=== PATIENT | male | born 1955 | race Caucasian/White ===

== ENCOUNTER 2016-06-29 13:19 | Emergency (ER) | payer OTHER ==
[~2016-06-29] VITALS: Ht 172.7 cm; Wt 90.9 kg
[~2016-06-29 13:19] MED LIST: HYDR-3534 PO; IBUP800T23 PO; LISI-360 PO; LISI10TA3 PO; PERC5TAB12 PO; PROT40TA PO; TRAM50TA PO
[2016-06-29 13:21] VITALS: BP 146/93; PULSE 137; RESP 14; TEMP 98.6; O2SAT 100
[2016-06-29] MEDS ORDERED: oxyCODONE/ACETAMINOPHEN 5 MG/325 MG TAB PO ONE (16:00)
--- NOTE | 2016-06-29 16:06 | RADRPT ---
EXAM DATE/TIME: 06/29/2016 15:44 [facility] COMPARISON: KNEE LEFT LTD (1 OR 2VWS), May 30, 2016, 1:02. INDICATIONS : Left knee pain and swelling. MEDICAL HISTORY : Arthritis. SURGICAL HISTORY : None. ENCOUNTER: Initial ACUITY: 3 months PAIN SCORE: 10/10 LOCATION: Left knee. FINDINGS: There is severe left knee 3 compartment osteoarthritis with marginal osteophytosis and posterior join t bodies. A large joint effusion is present, new. CONCLUSION: Severe osteoarthritis. Nonspecific joint effusion. No fracture or subluxation. Chaz Brooks MD on June 29, 2016 at 16:04 Board Certified Radiologist. This report was verified electronically.
--- NOTE | 2016-06-29 16:26 | PD ---
HPI Chief Complaint: Pain: Acute or Chronic Time Seen by Provider: 16:16 Travel History International Travel<30 days: No Contact w/Intl Traveler<30days: No Traveled to known affect area: No History of Present Illness HPI 60-year-old male with a long history of bilateral arthritis in the knees presents to the emergency room for evaluation of extreme left knee pain and swelling that started this morning. Patient's was seen by Dr. Luna in his office 5 days ago for this condition at which time the knee was drained. Patient states since then it has been gradually increasing in size and this morning it was the largest that it has been thus far. Patient states it has been a long time since he has had an x-ray. Denies any trauma. States this morning while rolling over in bed he hurt his knee pop and had extreme pain at the time. He took Aleve and Lortab, wrapped his knee, applied multiple bags of ice, and applied topical pain medication without any relief. He is scheduled to have outpatient knee replacement. Denies fever, chills, nausea, and vomiting. States he usually ambulates with crutches and does not apply weight to his lower extremity. Denies paresthesias. PFSH Past Medical History Cardiovascular Problems: Yes (HTN) Diminished Hearing: No Diverticulitis: Yes GERD: Yes Immunizations Current: Yes Tetanus Vaccination: Unknown Influenza Vaccination: No Past Surgical History Joint Replacement: Yes (RIGHT KNEE) Other Surgery: Yes (PERFORATED BOWEL) Social History Alcohol Use: No Tobacco Use: Yes (6 CIGS DAILY) Substance Use: No Allergies-Medications (Allergen,Severity, Reaction): Coded Allergies: Aspirin (Verified Allergy, Severe, ANAPHYLAXIS, 06/29/16) Reported Meds & Prescriptions Reported Meds & Active Scripts Active Percocet (Oxycodone-Acetaminophen) 7.5-325 mg Tab 1 Tab PO Q6H PRN Lortab (Hydrocodone-Acetaminophen) 7.5-325 Mg Tab 1 Tab PO Q6H PRN Ibuprofen 800 Mg Tab 800 Mg PO Q6H PRN Percocet 5-325 mg (Oxycodone/Acetaminophen) 1 Tab 1 Tab PO Q6H PRN Lisinopril 10 mg (Lisinopril) 10 Mg Tab 1 Tab PO DAILY Reported Tramadol (Tramadol HCl) 50 Mg Tab 50 Mg PO Q4H PRN Protonix (Pantoprazole Sodium) 40 Mg Tab 40 Mg PO DAILY Lisinopril 10 Mg Tab 10 Mg PO DAILY Protonix (Pantoprazole Sodium) 40 Mg Tab 40 Mg PO DAILY Review of Systems Except as stated in HPI: all other systems reviewed are Neg Physical Exam Narrative GENERAL: Well-nourished, well-developed male in no acute distress. Afebrile. SKIN: Warm and dry. No erythema or ecchymosis. HEAD: Normocephalic. EYES: No scleral icterus. No injection or drainage. NECK: Supple, trachea midline. No JVD or lymphadenopathy. EXTREMITY: Right knee extremely tender to palpation on lateral and medial sides. No patellar tenderness. Limited range of motion secondary to pain. Obvious effusion. 2+ dorsalis pedis pulse distally. Data Data Last Documented VS Vital Signs Date Time Temp Pulse Resp B/P Pulse Ox O2 Delivery O2 Flow Rate FiO2 06/29/16 16:52 116 06/29/16 13:21 98.6 14 146/93 100 Room Air Orders Knee, Complete (4vws) (06/29/16 ) Oxycodone-Acetamin 5-325 Mg (Percocet (06/29/16 16:00) Us Leg Venous Doppler (06/29/16 ) Complete Blood Count With Diff (06/29/16 16:58) Basic Metabolic Panel (Bmp) (06/29/16 16:58) [place]gren Sedimentation Rate (06/29/16 16:58) C-Reactive Protein (Crp) (06/29/16 16:58) Labs Laboratory Tests Test 06/29/16 17:50 White Blood Count 8.0 TH/MM3 Red Blood Count 5.32 MIL/MM3 Hemoglobin 15.5 GM/DL Hematocrit 45.3 % Mean Corpuscular Volume 85.2 FL Mean Corpuscular Hemoglobin 29.1 PG Mean Corpuscular Hemoglobin 34.2 % Concent Red Cell Distribution Width 14.0 % Platelet Count 247 TH/MM3 Mean Platelet Volume 8.0 FL Neutrophils (%) (Auto) 64.6 % Lymphocytes (%) (Auto) 25.6 % Monocytes (%) (Auto) 7.0 % Eosinophils (%) (Auto) 1.4 % Basophils (%) (Auto) 1.4 % Neutrophils # (Auto) 5.2 TH/MM3 Lymphocytes # (Auto) 2.1 TH/MM3 Monocytes # (Auto) 0.6 TH/MM3 Eosinophils # (Auto) 0.1 TH/MM3 Basophils # (Auto) 0.1 TH/MM3 CBC Comment DIFF FINAL Differential Comment Sodium Level 138 MEQ/L Potassium Level 3.6 MEQ/L Chloride Level 103 MEQ/L Carbon Dioxide Level 26.8 MEQ/L Anion Gap 8 MEQ/L Blood Urea Nitrogen 17 MG/DL Creatinine 0.81 MG/DL Estimat Glomerular Filtration 98 ML/MIN Rate Random Glucose 94 MG/DL Calcium Level 9.6 MG/DL C-Reactive Protein LESS THAN 0.29 MG/DL MDM Medical Decision Making Medical Screen Exam Complete: Yes Emergency Medical Condition: Yes Medical Record Reviewed: Yes Differential Diagnosis Chronic knee pain versus osteoarthritis versus effusion versus septic arthritis unlikely Narrative Course 60-year-old male with history of hemarthrosis and chronic knee pain presents to the emergency room for evaluation of acute on chronic left knee pain. Patient has history of severe*arthritis requiring knee replacement. Reports significant worsening of pain upon waking this morning. Denies any new trauma or injury. Patient had a arthrocentesis performed as an outpatient by Dr. Luna 5 days ago. States the fluid has accumulated since then. Reports significant pain upon range of motion. Left lower extremity is neurovascularly intact with 2+ dorsalis pedis pulse. Full range motion of the ankle and foot. Limited range of motion secondary to pain and edema. Significant tenderness to palpation of lateral and medial knee. There is obvious, large effusion. No erythema or ecchymosis. Knee is not significantly warmer than the other. Given recent arthrocentesis an acute onset of pain, labs were obtained to rule out septic arthritis. CBC, BMP, sedimentation rate, and CRP are unremarkable making septic arthritis unlikely. Patient is highly anxious and his heart rate is persistently elevated. I spoke to my attending physician, Dr. Tripp, who recommends ultrasound to rule out DVT. Ultrasound is negative. X-ray shows severe osteoarthritis and large effusion but no new injury. This is acute on chronic joint effusion. Patient was encouraged to follow up with Dr. Luna. Discharged with prescription for Percocet. He understands and agrees to plan. Diagnosis Primary Impression: Osteoarthritis of left knee Qualified Code: M17.12 - Primary osteoarthritis of left knee Referrals: Primary Care Physician Patient Instructions: General Instructions, Osteoarthritis (ED) Additional Instructions: Rest and drink plenty of fluids. Take Lortab as directed, as needed for pain. Do not drink alcohol or drive while taking this medication. Take ibuprofen with food as directed, as needed for pain. Apply ice to the affected area for 20 minutes at a time, as needed for pain and swelling. Follow-up with a primary care physician. Return to the emergency room for worsening symptoms. Med/Other Pt SpecificInfo: Prescription(s) given Scripts Oxycodone-Acetaminophen (Percocet)7.5-325 mg Tab1 Tab PO Q6H PRN (PAIN) #10 TAB Ref 0 Prov:Regina Tripp DO 06/29/16 Disposition: 01 DISCHARGE HOME Condition: Stable Cassandra Iniguez Jun 29, 2016 16:26
[2016-06-29] MEDS ORDERED: PERC7.5T13 PO (16:51)
[2016-06-29 16:52] VITALS: PULSE 116
--- NOTE | 2016-06-29 18:01 | RADRPT ---
EXAM DATE/TIME: 06/29/2016 17:24 [facility] COMPARISON: US LEG LEFT VENOUS DOPPLER, April 16, 2016, 3:39. INDICATIONS : Left leg pain. MEDICAL HISTORY : Hypertension. Diverticulitis. Gastroesophageal reflux disease. SURGICAL HISTORY : Total knee replacement, right. Left upper arm fracture repair. Perforated bowel repair. ENCOUNTER: Initial ACUITY: 1 day PAIN SCORE: 9/10 LOCATION: Left leg. TECHNIQUE: Venous ultrasound of the leg was performed from the inguinal ligament to the proximal calf. Real-tex e, color Doppler and spectral tracing, compression and augmentation techniques were used. FINDINGS: There is normal compressibility of the deep venous system from the inguinal region to the proximal ca lf. No echogenic clot is seen in the lumen of the common femoral, femoral, popliteal, and posterior tibial veins. There is a normal response of the venous system to proximal and distal augmentation an d respiration. The presumed popliteal cyst seen previously has resolved. CONCLUSION: No DVT of the left lower extremity. Chaz Brooks MD on June 29, 2016 at 17:59 Board Certified Radiologist. This report was verified electronically.
[2016-06-29 18:17] LABS: AUTOMATED NEUTROPHIL # 5.2 TH/MM3 (1.8-7.7); BASOPHIL # 0.1 TH/MM3 (0-0.2); BASOPHIL % 1.4 % (0.0-2.0); EOSINOPHIL # 0.1 TH/MM3 (0-0.4); EOSINOPHIL % 1.4 % (0.0-4.0); HEMATOCRIT 45.3 % (39.0-51.0); HEMO FLAGS DIFF FINAL; LYMPH % 25.6 % (9.0-44.0); LYMPHOCYTE # 2.1 TH/MM3 (1.0-4.8); MEAN CELL VOLUME 85.2 FL (80.0-100.0); MEAN CORPUSCULAR HEMOGLOBIN 29.1 PG (27.0-34.0); MEAN CORPUSCULAR HGB CONC 34.2 % (32.0-36.0); NEUT % 64.6 % (16.0-70.0); PLATELET COUNT 247 TH/MM3 (150-450); RED BLOOD COUNT 5.32 MIL/MM3 (4.50-5.90)
[2016-06-29 18:39] LABS: ANION GAP 8 MEQ/L (5-15); BICARBONATE 26.8 MEQ/L (21.0-32.0); BLOOD UREA NITROGEN 17 MG/DL (7-18); CHLORIDE 103 MEQ/L (98-107); GLOMERULAR FILTRATION RATE 98 ML/MIN (>89); POTASSIUM 3.6 MEQ/L (3.5-5.1); SODIUM (NA) 138 MEQ/L (136-145)
== END 2016-06-29 19:48 | disposition home or self-care (01) ==
LOC: NEPB 13:19
DX: M17.12 Unilateral primary osteoarthritis, left knee (principal); I10 Essential (primary) hypertension; K21.9 Gastro-esophageal reflux disease without esophagitis; K57.92 Diverticulitis of intestine, part unspecified, without perforation or abscess without bleeding; F17.210 Nicotine dependence, cigarettes, uncomplicated
CPT/HCPCS: 73564; 80048; 85025; 85652; 86140; 93971

== ENCOUNTER 2016-11-27 18:10 | Emergency (ER) | payer OTHER ==
[~2016-11-27] VITALS: Ht 172.7 cm; Wt 90.0 kg
[~2016-11-27 18:10] MED LIST changes: +PERC7.5T13 PO
[2016-11-27 18:12] VITALS: BP 131/85; PULSE 112; RESP 14; TEMP 98.2; O2SAT 99
[2016-11-27 18:39] VITALS: O2SAT 96
[2016-11-27] MEDS ORDERED: SODIUM CHLOR 0.9% 1000 ML INJ 1,000 ML IV SCH (18:41)
[2016-11-27] MEDS ORDERED: SODIUM CHLORIDE 0.9% FLUSH 10 ML FLUSH IV FLUSH PRN ×2 (18:45)
[2016-11-27] MEDS ORDERED: ONDANSETRON HCL 4 MG/2 ML VIAL IVP ONE (18:45)
[2016-11-27] MEDS ORDERED: MORPHINE SULFATE 4 MG/ML INJ IV PUSH ONE (18:45)
[2016-11-27] MEDS ORDERED: KETOROLAC TROMETHAMINE 30 MG/ML (IVP) VIAL IVP ONE (18:45)
--- NOTE | 2016-11-27 18:46 | PD ---
HPI Chief Complaint: Flank/Kidney Pain Time Seen by Provider: 18:42 Travel History International Travel<30 days: No Contact w/Intl Traveler<30days: No Traveled to known affect area: No History of Present Illness HPI 60-year-old male with history of hypertension and GERD presents to the emergency department for evaluation of right flank pain, nausea and vomiting. The patient states that 2 days ago in the evening he had right flank pain with nausea and multiple episodes of nonbloody nonbilious emesis. States that yesterday his symptoms subsided however today his symptoms have returned. States that he has not had any vomiting today but has had nausea throughout the day with intermittent right flank pain. No aggravating or alleviating factors. States that he has noticed his urine is also darker. He states his kidney stones in the past and his symptoms feel similar today. He denies any fever, chills, chest pain, shortness of breath, diarrhea, constipation, burning with urination, painful urination. Denies any prior abdominal surgeries. No other complaints. PFSH Past Medical History Cardiovascular Problems: Yes (HTN) Diminished Hearing: No Diverticulitis: Yes GERD: Yes Immunizations Current: Yes Past Surgical History Joint Replacement: Yes (RIGHT KNEE) Other Surgery: Yes (PERFORATED BOWEL) Social History Alcohol Use: No Tobacco Use: Yes (6 CIGS DAILY) Substance Use: No Allergies-Medications (Allergen,Severity, Reaction): Coded Allergies: Aspirin (Verified Allergy, Severe, ANAPHYLAXIS, 06/29/16) Reported Meds & Prescriptions Reported Meds & Active Scripts Active Reported Flonase Nasal [place] (Fluticasone Nasal [place]) 50 Mcg/Act [place] 50 Mcg EACH NARE BID Protonix (Pantoprazole Sodium) 40 Mg Tab 40 Mg PO DAILY Lisinopril 10 Mg Tab 10 Mg PO DAILY Review of Systems Except as stated in HPI: all other systems reviewed are Neg Physical Exam Narrative GENERAL: Well-nourished and well-developed pleasant patient in no acute distress who is nontoxic appearing. SKIN: Warm and dry. HEAD: Normocephalic and atraumatic. EYES: No injection, drainage, or hyphema noted. PERRLA. EOMI. ENT: No nasal drainage noted. Oropharynx is clear. NECK: Supple and the trachea is midline. CARDIOVASCULAR: Regular rate and rhythm. RESPIRATORY: Breath sounds are equal bilaterally with no accessory muscle use, wheezing, rhonchi, or crackles. GASTROINTESTINAL: Tenderness to palpation of right flank. Negative Griffith's sign. Negative McBurney's point. No rebound tenderness or guarding. Abdomen is soft and nondistended. MUSCULOSKELETAL: No obvious deformities, swelling, cyanosis, or ecchymosis is present throughout the upper and lower extremities. Patient has full range of motion without any signs of neurovascular compromise. BACK: Negative CVA tenderness. NEUROLOGICAL: Awake, alert, and oriented. Normal speech and gait. Cranial nerves are grossly intact. Data Data Last Documented VS Vital Signs Date Time Temp Pulse Resp B/P Pulse Ox O2 Delivery O2 Flow Rate FiO2 11/27/16 18:39 96 11/27/16 18:12 98.2 112 14 131/85 Orders Complete Blood Count With Diff (11/27/16 18:34) Comprehensive Metabolic Panel (11/27/16 18:34) Lipase (11/27/16 18:34) Urinalysis - C+S If Indicated (11/27/16 18:34) Iv Access Insert/Monitor (11/27/16 18:34) Ecg Monitoring (11/27/16 18:34) Oximetry (11/27/16 18:34) Sodium Chloride 0.9% Flush (Ns Flush) (11/27/16 18:45) Ct Abd/Pel W/O Iv Contrast (11/27/16 18:41) Morphine Inj (Morphine Inj) (11/27/16 18:45) Ondansetron Inj (Zofran Inj) (11/27/16 18:45) Sodium Chlor 0.9% 1000 Ml Inj (Ns 1000 M (11/27/16 18:41) Sodium Chloride 0.9% Flush (Ns Flush) (11/27/16 18:45) Ketorolac Inj (Toradol Inj) (11/27/16 18:45) Urine Culture (11/27/16 18:55) Labs Laboratory Tests Test 11/27/16 11/27/16 18:41 18:55 White Blood Count 7.7 TH/MM3 Red Blood Count 4.79 MIL/MM3 Hemoglobin 13.4 GM/DL Hematocrit 40.9 % Mean Corpuscular Volume 85.5 FL Mean Corpuscular Hemoglobin 28.0 PG Mean Corpuscular Hemoglobin 32.7 % Concent Red Cell Distribution Width 14.6 % Platelet Count 261 TH/MM3 Mean Platelet Volume 7.6 FL Neutrophils (%) (Auto) 67.0 % Lymphocytes (%) (Auto) 20.7 % Monocytes (%) (Auto) 8.7 % Eosinophils (%) (Auto) 1.5 % Basophils (%) (Auto) 2.1 % Neutrophils # (Auto) 5.2 TH/MM3 Lymphocytes # (Auto) 1.6 TH/MM3 Monocytes # (Auto) 0.7 TH/MM3 Eosinophils # (Auto) 0.1 TH/MM3 Basophils # (Auto) 0.2 TH/MM3 CBC Comment DIFF FINAL Differential Comment Sodium Level 141 MEQ/L Potassium Level 3.9 MEQ/L Chloride Level 106 MEQ/L Carbon Dioxide Level 27.3 MEQ/L Anion Gap 8 MEQ/L Blood Urea Nitrogen 18 MG/DL Creatinine 1.10 MG/DL Estimat Glomerular Filtration 69 ML/MIN Rate Random Glucose 116 MG/DL Calcium Level 9.1 MG/DL Total Bilirubin 0.4 MG/DL Aspartate Amino Transf 11 U/L (AST/SGOT) Alanine Aminotransferase 16 U/L (ALT/SGPT) Alkaline Phosphatase 147 U/L Total Protein 7.2 GM/DL Albumin 3.9 GM/DL Lipase 105 U/L Urine Color YELLOW Urine Turbidity HAZY Urine pH 5.0 Urine Specific [place] 1.025 Urine Protein TRACE mg/dL Urine Glucose (UA) NEG mg/dL Urine Ketones 10 mg/dL Urine Occult Blood LARGE Urine Nitrite NEG Urine Bilirubin NEG Urine Urobilinogen 2.0 MG/DL Urine Leukocyte Esterase TRACE Urine RBC 132 /hpf Urine WBC 9 /hpf Urine Squamous Epithelial 1 /hpf Cells Urine Bacteria MOD /hpf Urine Mucus MANY /lpf Microscopic Urinalysis Comment CULTURE INDICATED MDM Medical Decision Making Medical Screen Exam Complete: Yes Emergency Medical Condition: Yes Differential Diagnosis Kidney stone versus pyelonephritis versus cholecystitis versus muscle spasm Narrative Course 60-year-old male presents to the emergency department for evaluation of right flank pain with nausea and vomiting. Patient is afebrile, vital signs are stable. He has a history of kidney stones and reports that this feels similar. IV access was obtained, labs were drawn and sent. Patient is administered IV fluids, Toradol, morphine and Zofran. CT the abdomen and pelvis has been ordered and is pending. CBC is unremarkable. CMP is unremarkable. Urinalysis shows 10 ketones, large occult blood, trace leukocyte esterase, 132 red blood cells, 9 white blood cells, moderate bacteria, many mucus. CT of the abdomen and pelvis without contrast shows a 7 mm obstructing ureteral stone involving the mid right ureter with resulting mild hydronephrosis and proximal hydroureter. Multiple small right renal stones. The patient is reassessed and reports improvement of symptoms after receiving pain medication. I discussed all findings with the patient. He will be discharged home with pain medication, antiemetics, antibiotics and Flomax. Patient verbalizes understanding and agreement with treatment plan. I discussed the case with my attending physician Dr. Doshi who is aware of the patients history, physical examination findings, and treatment plan. Physician Communication Physician Communication I discussed the patient with Dr. Walsh urologist who agrees with discharging the patient to home and will follow-up with him in the office early next week. Diagnosis Primary Impression: Right ureteral stone Referrals: George Walsh MD 3 days Patient Instructions: General Instructions Additional Instructions: Take medications as prescribed. Do not take Lortab with alcohol or while driving. Follow-up with Dr. Walsh urologist early next week. Return to the ED for any acute worsening of symptoms such as worsening pain, fever, chills, vomiting. Med/Other Pt SpecificInfo: Prescription(s) given Scripts Tamsulosin 0.4 Mg Cap0.4 Mg PO HS 5 Days Ref 0 Prov:Kwabena Doshi MD 11/27/16 Ciprofloxacin (Cipro)500 Mg Qlj002 Mg PO BID 10 Days Ref 0 Prov:Kwabena Doshi MD 11/27/16 Ondansetron (Zofran)4 Mg Tab4 Mg PO Q6HR PRN (NAUSEA OR VOMITING) #15 TAB Ref 0 Prov:Kwabena Doshi MD 11/27/16 Hydrocodone-Acetaminophen (Lortab)5-325 Mg Tab1 Tab PO Q6H PRN (PAIN GREATER THAN 6) #20 TAB Ref 0 Prov:Kwabena Doshi MD 11/27/16 Disposition: 01 DISCHARGE HOME Condition: Stable Yarely Rodriguez Nov 27, 2016 18:46
[2016-11-27] MEDS ORDERED: FLUT1SPR5 EACH NARE (18:49)
[2016-11-27 18:51] LABS: AUTOMATED NEUTROPHIL # 5.2 TH/MM3 (1.8-7.7); BASOPHIL # 0.2 TH/MM3 (0-0.2); BASOPHIL % 2.1 % (0.0-2.0); EOSINOPHIL # 0.1 TH/MM3 (0-0.4); EOSINOPHIL % 1.5 % (0.0-4.0); HEMATOCRIT 40.9 % (39.0-51.0); HEMO FLAGS DIFF FINAL; LYMPH % 20.7 % (9.0-44.0); LYMPHOCYTE # 1.6 TH/MM3 (1.0-4.8); MEAN CELL VOLUME 85.5 FL (80.0-100.0); MEAN CORPUSCULAR HGB CONC 32.7 % (32.0-36.0); MONO % 8.7 % (0.0-8.0); PLATELET COUNT 261 TH/MM3 (150-450); RED BLOOD COUNT 4.79 MIL/MM3 (4.50-5.90); RED CELL DISTRIBUTION WIDTH 14.6 % (11.6-17.2); WHITE BLOOD COUNT 7.7 TH/MM3 (4.0-11.0)
[2016-11-27 19:30] LABS: BACTERIA, URINE MOD /hpf; BLOOD, URINE LARGE (NEG); COMMENT (UR) CULTURE INDICATED; CULTURE IF INDICATED CULTURE INDICATED; GLUCOSE,URINE NEG (NEG); KETONE, URINE 10 mg/dL (NEG); MUCUS URINE MANY /lpf (OCC); NITRITE,URINE NEG (NEG); SQUAMOUS EPITHELIAL CELL URINE 1 /hpf (0-5); URINE COLOR YELLOW (YELLW/STRAW)
[2016-11-27 19:31] LABS: ANION GAP 8 MEQ/L (5-15); AST (GOT) 11 U/L (15-37); BICARBONATE 27.3 MEQ/L (21.0-32.0); BLOOD UREA NITROGEN 18 MG/DL (7-18); CHLORIDE 106 MEQ/L (98-107); GLOMERULAR FILTRATION RATE 69 ML/MIN (>89); POTASSIUM 3.9 MEQ/L (3.5-5.1); SODIUM (NA) 141 MEQ/L (136-145)
[2016-11-27 19:35] LABS: ALKALINE PHOSPHATASE 147 U/L (45-117); ALT (GPT) 16 U/L (12-78); TOTAL BILIRUBIN ADULT 0.4 MG/DL (0.2-1.0)
--- NOTE | 2016-11-27 19:37 | RADRPT ---
EXAM DATE/TIME: 11/27/2016 19:07 [facility] COMPARISON: No previous studies available for comparison. INDICATIONS : Right flank pain with nausea and vomiting past 2 days. ORAL CONTRAST: No oral contrast ingested. RADIATION DOSE: 19.87 CTDIvol (mGy) MEDICAL HISTORY : Cardiovascular disease. Diverticulitis. Renal calculi. SURGICAL HISTORY : Perforted bowel ENCOUNTER: Initial ACUITY: 2 days PAIN SCALE: 7/10 LOCATION: Right flank TECHNIQUE: Volumetric scanning of the abdomen and pelvis was performed. Using automated exposure control and ad justment of the mA and/or kV according to patient size, radiation dose was kept as low as reasonably achievable to obtain optimal diagnostic quality images. FINDINGS: LOWER LUNGS: The visualized lower lungs are clear. LIVER: Homogeneous density without lesion. There is no dilation of the biliary tree. No calcified gallston es. SPLEEN: Normal size without lesion. PANCREAS: Within normal limits. KIDNEYS: A 7 mm obstructing ureteral stone involving the mid right ureter. There is resulting mild hydronephro sis and proximal hydroureter. No perinephric fluid collections. Scattered small stones are seen invol ving right kidney with the largest measuring 3 mm. No stones on the left. Small cortical renal cysts on the right. ADRENAL GLANDS: Within normal limits. VASCULAR: There is no aortic aneurysm. BOWEL/MESENTERY: The stomach, small bowel, and colon demonstrate no acute abnormality. There is no free intraperitone al air or fluid. Scattered colonic diverticuli without acute inflammation. ABDOMINAL WALL: Within normal limits. RETROPERITONEUM: There is no lymphadenopathy. BLADDER: No wall thickening or mass. REPRODUCTIVE: Within normal limits. INGUINAL: There is no lymphadenopathy or hernia. MUSCULOSKELETAL: Within normal limits for patient age. CONCLUSION: 1. 7 mm mid right ureteral stone with obstruction. 2. Multiple small right renal stones. 3. Colonic diverticulosis. Eulalio Santamaria Jr., MD on November 27, 2016 at 19:32 Board Certified Radiologist. This report was verified electronically.
[2016-11-27] MEDS ORDERED: TAMS0.4C4 PO (20:11)
[2016-11-27] MEDS ORDERED: HYDR-3533 PO (20:11)
[2016-11-27] MEDS ORDERED: CIPR-9 PO (20:11)
[2016-11-27] MEDS ORDERED: ZOFR4TAB PO (20:11)
[2016-11-27 20:45] VITALS: BP 150/76
== END 2016-11-27 20:45 | disposition home or self-care (01) ==
LOC: NEPE 18:10
DX: N20.1 Calculus of ureter (principal); R11.2 Nausea with vomiting, unspecified; I10 Essential (primary) hypertension; Z72.0 Tobacco use
CPT/HCPCS: 74176; 80053; 81001; 83690; 85025; 87086; 96374; 96375; 99285; J1885; J2270; J2405; J7030

== ENCOUNTER 2017-04-22 16:49 | Emergency (ER) | payer OTHER ==
[~2017-04-22] VITALS: Ht 172.7 cm; Wt 92.0 kg
[~2017-04-22 16:49] MED LIST changes: +CIPR-9 PO; +FLUT1SPR5 EACH NARE; +HYDR-3533 PO; -HYDR-3534 PO; -IBUP800T23 PO; -LISI-360 PO; -PERC5TAB12 PO; -PERC7.5T13 PO; +TAMS0.4C4 PO; -TRAM50TA PO; +ZOFR4TAB PO
[2017-04-22 16:52] VITALS: BP 129/84; PULSE 107; RESP 12; TEMP 98.6; O2SAT 98
[2017-04-22] MEDS ORDERED: MORPHINE SULFATE 4 MG/ML INJ IV PUSH ONE (18:30)
[2017-04-22] MEDS ORDERED: SODIUM CHLORIDE 0.9% FLUSH 10 ML FLUSH IVF PRN (18:30)
[2017-04-22] MEDS ORDERED: AMPICILLIN-SULBACTAM INJ 3 GM in SODIUM CHLORIDE 0.9% INJ 100 ML IV ONE (18:30)
[2017-04-22] MEDS ORDERED: RABIES VACCINE HUMAN DIPL CELL 2.5 UNITS/ML SYRINGE IM ONE (18:30)
[2017-04-22] MEDS ORDERED: MUPI2%T TOPICAL (18:39)
[2017-04-22] MEDS ORDERED: PERC5TAB12 PO (18:39)
[2017-04-22] MEDS ORDERED: AUGM875T3 PO (18:39)
--- NOTE | 2017-04-22 18:40 | PD ---
HPI Chief Complaint: Bite or Sting Time Seen by Provider: 18:11 Travel History International Travel<30 days: No Contact w/Intl Traveler<30days: No Traveled to known affect area: No History of Present Illness HPI Patient is 61-year-old male who presents to emergency room for evaluation of dog bite. Patient reports that he was going in his daily walk today, he reports that he was bit by a pit bull. Reports that this dog did have a dog tag but he was unsure who the dog belonged to. Reports that event occurred at 4 PM today. Patient reports that tetanus is up to date. Patient currently is not on any anticoagulants. Patient denies fall, no other c/o. PFSH Past Medical History Cardiovascular Problems: Yes Diminished Hearing: No Diverticulitis: Yes GERD: Yes Immunizations Current: Yes Past Surgical History Joint Replacement: Yes (RIGHT KNEE) Other Surgery: Yes (PERFORATED BOWEL) Social History Alcohol Use: No Tobacco Use: Yes (6 CIGS DAILY) Substance Use: No Allergies-Medications (Allergen,Severity, Reaction): Coded Allergies: aspirin (Unverified Allergy, Severe, ANAPHYLAXIS, 04/22/17) Reported Meds & Prescriptions Reported Meds & Active Scripts Active Reported Flonase Nasal Ethel (Fluticasone Nasal Ethel) 50 Mcg/Act Ethel 50 Mcg EACH NARE BID Protonix (Pantoprazole Sodium) 40 Mg Tab 40 Mg PO DAILY Lisinopril 10 Mg Tab 10 Mg PO DAILY Review of Systems General / Constitutional: No: Fever Eyes: No: Visual changes HENT: No: Headaches Cardiovascular: No: Chest Pain or Discomfort Respiratory: No: Shortness of Breath Gastrointestinal: No: Abdominal Pain Genitourinary: No: Dysuria Musculoskeletal: No: Pain Skin: Positive Other (skin lacerations), No Rash Neurologic: No: Weakness Psychiatric: No: Depression Endocrine: No: Polydipsia Hematologic/Lymphatic: No: Easy Bruising Physical Exam Narrative GENERAL: moderate distress SKIN: Focused skin assessment warm/dry. HEAD: Atraumatic. Normocephalic. EYES: Pupils equal and round. No scleral icterus. No injection or drainage. ENT: No nasal bleeding or discharge. Mucous membranes pink and moist. NECK: Trachea midline. No JVD. CARDIOVASCULAR: Regular rate and rhythm. No murmur appreciated. RESPIRATORY: No accessory muscle use. Clear to auscultation. Breath sounds equal bilaterally. GASTROINTESTINAL: Abdomen soft, non-tender, nondistended. Hepatic and splenic margins not palpable. MUSCULOSKELETAL: No obvious deformities. No clubbing. No cyanosis. Patient with 4 puncture wounds to right forearm, there are 2 puncture wounds to the volar aspect of his right forearm as well as 2 puncture wounds to the dorsal aspect of his forearm., there is a skin abrasion to his right thigh NEUROLOGICAL: Awake and alert.Normal speech. PSYCHIATRIC: Appropriate mood and affect; insight and judgment normal. Data Data Last Documented VS Vital Signs Date Time Temp Pulse Resp B/P (MAP) Pulse Ox O2 Delivery O2 Flow Rate FiO2 04/22/17 19:18 75 18 144/83 (103) 100 Room Air 04/22/17 16:52 98.6 Orders Orders Forearm (2vws) (04/22/17 ) Hand, Complete ([id number]) (04/22/17 ) Iv Access Insert/Monitor (04/22/17 18:23) Morphine Inj (Morphine Inj) (04/22/17 18:30) Sodium Chloride 0.9% Flush (Ns Flush) (04/22/17 18:30) Ampicillin-Sulbactam Inj (Unasyn Inj) (04/22/17 18:30) Femur (Ap & Lat/2vws) (04/22/17 ) Ecg Monitoring (04/22/17 18:23) Rabies Vaccine Human Cell Inj (Imovax In (04/22/17 18:30) Wound Care (04/22/17 19:40) Ed Discharge Order (04/22/17 19:41) MDM Medical Decision Making Medical Screen Exam Complete: Yes Emergency Medical Condition: Yes Medical Record Reviewed: Yes Interpretation(s) Vital Signs Date Time Temp Pulse Resp B/P (MAP) Pulse Ox O2 Delivery O2 Flow Rate FiO2 04/22/17 16:52 98.6 107 12 129/84 (99) 98 Differential Diagnosis dog bite Narrative Course IV line was established, patient was placed on a clinical research monitor. IV unasyn ordered. Xrays ordered. Discussed need for rabies vaccine as vaccinations of dog are unknown. Understands need for rabies vaccine on Day 0, 3, 7, 14. Rabies immunoglobin ordered as well. Last Impressions Radius/Ulna X-Ray 04/22/17 0000 Signed Impressions: Service Date/Time: March 18:37 - CONCLUSION: No acute bony injury. No foreign body. Chaz Archer MD Hand X-Ray 04/22/17 0000 Signed Impressions: Service Date/Time: March 18:40 - CONCLUSION: No acute bony injury Chaz Archer MD Femur X-Ray 04/22/17 0000 Signed Impressions: Service Date/Time: March 18:45 - CONCLUSION: No acute bony injury. Chaz Archer MD Patient will return to ER on the following days for rabies vaccination. Day 0: today Day 3: April 25, 2017 Day 7: April 29, 2017 Day 14: May 06, 2017 Signs and symptoms of when to return to the ER was reviewed with patient and his family in detail. Diagnosis Primary Impression: Dog bite Qualified Codes: W54.0XXA - Bitten by dog, initial encounter Patient Instructions: Narcotic given in the ED, General Instructions Additional Instructions: Please provide patient with a copy of their lab work and studies at discharge* * Please follow up with your primary care doctor in 2-3 days Return to the ER if symptoms worsen or progress Return to the ER as needed Please return to the ER or to your primary care doctor's office in 48 hours for wound check, return to the ER earlier if you develop any signs of infection/ fever/chills. Rabies vaccinations: please return to the ER on the following days for your vaccinations Day 3: April 25, 2017 Day 7: April 29, 2017 Day 14: May 06, 2017 Med/Other Pt SpecificInfo: Prescription(s) given, Wound Care Disposition: 01 DISCHARGE HOME Condition: Stable Regina Tripp DO Apr 22, 2017 18:40
--- NOTE | 2017-04-22 19:09 | RADRPT ---
EXAM DATE/TIME: 04/22/2017 18:37 [facility] COMPARISON: No previous studies available for comparison. INDICATIONS : Right midshaft forearm pain, dog bite MEDICAL HISTORY : Hypertension. Diverticulitis. Gastroesophageal reflux disease. Femur fracture SURGICAL HISTORY : Total knee replacement, right. Left upper arm fracture repair. Perforated bowel repair. ENCOUNTER: Initial ACUITY: 1 day PAIN SCORE: 10/10 LOCATION: Right Forearm FINDINGS: Two view examination of the right forearm demonstrates no evidence of fracture or dislocation. Bony mineralization is normal. There is no evidence of radiodense foreign body. There does appear to be he matoma in the proximal forearm with some subcutaneous air noted.. CONCLUSION: No acute bony injury. No foreign body. Chaz Archer MD on April 22, 2017 at 19:07 Board Certified Radiologist. This report was verified electronically.
--- NOTE | 2017-04-22 19:13 | RADRPT ---
EXAM DATE/TIME: 04/22/2017 18:40 [facility] COMPARISON: No previous studies available for comparison. INDICATIONS : Right hand pain, dog pulled to the ground by hand MEDICAL HISTORY : Hypertension. Diverticulitis. Gastroesophageal reflux disease. fFracture right femur SURGICAL HISTORY : Total knee replacement, right. Left upper arm fracture repair ENCOUNTER: Initial ACUITY: 1 day PAIN SCORE: 10/10 LOCATION: Right hand FINDINGS: There is no evidence of fracture or dislocation. No foreign bodies identified. There is old likely po sttraumatic deformity of the distal ulna. There are mild arthritic changes. CONCLUSION: No acute bony injury Chaz Archer MD on April 22, 2017 at 19:09 Board Certified Radiologist. This report was verified electronically.
--- NOTE | 2017-04-22 19:15 | RADRPT ---
EXAM DATE/TIME: 04/22/2017 18:45 [facility] COMPARISON: No previous studies available for comparison. INDICATIONS : Evaluate right femur for trauma, dog claw anterior femur MEDICAL HISTORY : Hypertension. Diverticulitis. Gastroesophageal reflux disease. Fracture right femur SURGICAL HISTORY : Total knee replacement, right. Left upper arm fracture repair ENCOUNTER: Initial ACUITY: 1 day PAIN SCORE: 0/10 LOCATION: Right Femur FINDINGS: Right total knee arthroplasty is intact. An old healed fracture the proximal femur is present. The hi p is grossly intact. Is no evidence of acute bony injury. There are varicosities noted in the leg. CONCLUSION: No acute bony injury. Chaz Archer MD on April 22, 2017 at 19:12 Board Certified Radiologist. This report was verified electronically.
[2017-04-22 19:18] VITALS: BP 144/83; PULSE 75; RESP 18; O2SAT 100
[2017-04-22] MEDS ORDERED: RABIES IMMUNE GLOBULIN INJ 1,500 UNITS/10 ML VIAL IM SCH (19:45)
[2017-04-22 20:51] VITALS: BP 123/71; PULSE 82; RESP 18; O2SAT 96
[2017-04-22] MEDS ORDERED: oxyCODONE/ACETAMINOPHEN 5 MG/325 MG TAB PO ONE (21:30)
== END 2017-04-22 21:32 | disposition home or self-care (01) ==
LOC: NEPD 16:49
DX: S51.851A Open bite of right forearm, initial encounter (principal); W54.0XXA Bitten by dog, initial encounter; Y93.01 Activity, walking, marching and hiking; Z23 Encounter for immunization
CPT/HCPCS: 73090; 73130; 73552; 90375; 90471; 90675; 96365; 96372; 96375; 99284; J0295; J2270; 90472

== ENCOUNTER 2017-08-22 13:41 | Emergency (ER) | payer MEDICAID, OTHER ==
[~2017-08-22] VITALS: Ht 172.7 cm; Wt 91.0 kg
[~2017-08-22 13:41] MED LIST changes: -CIPR-9 PO; -HYDR-3533 PO; -TAMS0.4C4 PO; -ZOFR4TAB PO
[2017-08-22 13:43] VITALS: BP 168/84; PULSE 82; RESP 18; TEMP 97.7; O2SAT 96
--- NOTE | 2017-08-22 14:14 | PD ---
HPI Chief Complaint: Skin Problem Time Seen by Provider: 14:07 Travel History International Travel<30 days: No Contact w/Intl Traveler<30days: No Traveled to known affect area: No History of Present Illness HPI Patient 61-year-old male presents emergency department for right lower extremity swelling. Patient states that he was diagnosed with a skin ulcer has been on 2 courses of antibiotics but his leg continues to swell. Patient states symptoms been going on for some time and gradually worsening. Patient states been wearing knee-high compression stockings and this is not helping either. Denies any fever cough congestion shortness of breath. He states is swollen from the knee Down. Denies any injury denies any history of diabetes or other immune compromised states symptoms are moderate, for the past couple week, gradually worsening. PFSH Past Medical History Cardiovascular Problems: Yes Diminished Hearing: No Diverticulitis: Yes GERD: Yes Hypertension: Yes Immunizations Current: Yes Past Surgical History Joint Replacement: Yes (bilat KNEE) Other Surgery: Yes (PERFORATED BOWEL) Social History Alcohol Use: No Tobacco Use: Yes (6 CIGS DAILY) Substance Use: No Allergies-Medications (Allergen,Severity, Reaction): Coded Allergies: aspirin (Unverified Allergy, Severe, ANAPHYLAXIS, 08/22/17) Reported Meds & Prescriptions Reported Meds & Active Scripts Active Ultram (Tramadol HCl) 50 Mg Tab 50 Mg PO Q6H PRN Clindamycin (Clindamycin HCl) 150 Mg Cap 300 Mg PO Q6H 10 Days Reported Flonase Nasal [place] (Fluticasone Nasal [place]) 50 Mcg/Act [place] 50 Mcg EACH NARE BID Protonix (Pantoprazole Sodium) 40 Mg Tab 40 Mg PO DAILY Lisinopril 10 Mg Tab 10 Mg PO DAILY Review of Systems Except as stated in HPI: all other systems reviewed are Neg Physical Exam Narrative GENERAL: Well-developed well-nourished no obvious distress per SKIN: Focused skin assessment warm/dry. There is a dime size skin ulcer on the anterior medial aspect of the distal third of the lower leg, there is minimal surrounding ready skin color changes but they do not nataly, is consistent with chronic breakdown secondary to venous congestion but a chronic cellulitis could be considered. The temperature of the skin is euthermic with the opposite extremity peer HEAD: Atraumatic. Normocephalic. EYES: Pupils equal and round. No scleral icterus. No injection or drainage. ENT: No nasal bleeding or discharge. Mucous membranes pink and moist. NECK: Trachea midline. No JVD. CARDIOVASCULAR: Regular rate and rhythm. No murmur appreciated. RESPIRATORY: No accessory muscle use. Clear to auscultation. Breath sounds equal bilaterally. GASTROINTESTINAL: Abdomen soft, non-tender, nondistended. Hepatic and splenic margins not palpable. MUSCULOSKELETAL: No obvious deformities. No clubbing. No cyanosis. There is significant edema of the right lower extremity, pitting from the knee Distally to the ankle, foot seems relatively spared. 2+ bilateral equal pulses are felt in all 4 extremities, cap refill is brisk. NEUROLOGICAL: Awake and alert. No obvious cranial nerve deficits. Motor grossly within normal limits. Normal speech. PSYCHIATRIC: Appropriate mood and affect; insight and judgment normal. Data Data Last Documented VS Vital Signs Date Time Temp Pulse Resp B/P (MAP) Pulse Ox O2 Delivery O2 Flow Rate FiO2 08/22/17 13:43 97.7 82 18 168/84 (112) 96 Orders Orders Complete Blood Count With Diff (08/22/17 14:13) Comprehensive Metabolic Panel (08/22/17 14:13) Prothrombin Time / Inr (Pt) (08/22/17 14:13) Act Partial Throm Time (Ptt) (08/22/17 14:13) Iv Access Insert/Monitor (08/22/17 14:13) Sodium Chloride 0.9% Flush (Ns Flush) (08/22/17 14:15) Acetaminophen (Tylenol) (08/22/17 14:15) Us Leg Venous Doppler (08/22/17 14:13) C-Reactive Protein (Crp) (08/22/17 15:06) Westergren Sedimentation Rate (08/22/17 15:23) Mri Lower Leg W/Wo Contrast (08/22/17 ) Gadodiamide Pf Inj (Omniscan Pf Inj) (08/22/17 15:51) Clindamycin 900 Mg/Ns Premix (Cleocin 90 (08/22/17 17:00) Tramadol (Ultram) (08/22/17 17:00) Ed Discharge Order (08/22/17 16:56) Labs Laboratory Tests Test 08/22/17 14:38 White Blood Count 6.4 TH/MM3 Red Blood Count 4.63 MIL/MM3 Hemoglobin 14.4 GM/DL Hematocrit 39.9 % Mean Corpuscular Volume 86.2 FL Mean Corpuscular Hemoglobin 31.0 PG Mean Corpuscular Hemoglobin Concent 36.0 % Red Cell Distribution Width 13.9 % Platelet Count 234 TH/MM3 Mean Platelet Volume 7.8 FL Neutrophils (%) (Auto) 68.0 % Lymphocytes (%) (Auto) 22.4 % Monocytes (%) (Auto) 7.0 % Eosinophils (%) (Auto) 1.5 % Basophils (%) (Auto) 1.1 % Neutrophils # (Auto) 4.4 TH/MM3 Lymphocytes # (Auto) 1.4 TH/MM3 Monocytes # (Auto) 0.4 TH/MM3 Eosinophils # (Auto) 0.1 TH/MM3 Basophils # (Auto) 0.1 TH/MM3 CBC Comment AUTO DIFF Differential Comment AUTO DIFF CONFIRMED Erythrocyte Sedimentation Rate 10 mm/hr Prothrombin Time 10.9 SEC Prothromb Time International Ratio 1.1 RATIO Activated Partial Thromboplast Time 26.0 SEC Blood Urea Nitrogen 14 MG/DL Creatinine 0.83 MG/DL Random Glucose 176 MG/DL Total Protein 6.9 GM/DL Albumin 3.5 GM/DL Calcium Level 8.9 MG/DL Alkaline Phosphatase 110 U/L Aspartate Amino Transf (AST/SGOT) 28 U/L Alanine Aminotransferase (ALT/SGPT) 13 U/L Total Bilirubin 0.4 MG/DL Sodium Level 140 MEQ/L Potassium Level 4.7 MEQ/L Chloride Level 110 MEQ/L Carbon Dioxide Level 25.5 MEQ/L Anion Gap 5 MEQ/L Estimat Glomerular Filtration Rate 95 ML/MIN C-Reactive Protein 0.67 MG/DL [facility] Medical Decision Making Medical Screen Exam Complete: Yes Emergency Medical Condition: Yes Differential Diagnosis DVT, cellulitis, osteomyelitis. Narrative Course Patient room to the emergency department, he appears quite well is quite a gentleman. He has significant edema of his lower extremity and I suspect a DVT ultrasound is negative and I did discuss the patient with the oncology technician while she was performing the procedure. Labs are reassuring but given his level of swelling I still suspect underlying pathology and an MRI was ordered to exclude osteomyelitis which it does. MRI is consistent with an advanced cellulitis and though his blood work is reassuring other possibility is considered that the patient knee-high socks are exacerbating his edema and this may only be peripheral edema coupled with a chronic skin ulcer. Still I think a course of clindamycin and it would be beneficial for him, I discussed the risk of antibiotic born diarrhea and recommended probiotics. Discussed follow- up with primary care physician or return to ED criteria. Diagnosis Primary Impression: Cellulitis Additional Impression: Cellulitis of lower leg Additional Instructions: Do not use knee high stockings, only use thigh high FRANCY hose. If youre still swollen in one week recommend you have a repeat ultrasound of the leg. Med/Other Pt SpecificInfo: Prescription(s) given Scripts Tramadol (Ultram) 50 Mg Tab 50 MG PO Q6H Y for PAIN, #20 TAB 0 Refills Prov: Dallas Casanova MD 08/22/17 Clindamycin (Clindamycin) 150 Mg Cap 300 MG PO Q6H for Infection for 10 Days, #80 CAP 0 Refills Prov: Dallas Casanova MD 08/22/17 Disposition: 01 DISCHARGE HOME Condition: Stable Dallas Casanova MD Aug 22, 2017 14:14
[2017-08-22] MEDS ORDERED: SODIUM CHLORIDE 0.9% FLUSH 10 ML FLUSH IVF PRN (14:15)
[2017-08-22] MEDS ORDERED: ACETAMINOPHEN 325 MG TAB PO ONE (14:15)
[2017-08-22 15:02] LABS: AUTOMATED NEUTROPHIL # 4.4 TH/MM3 (1.8-7.7); BASOPHIL # 0.1 TH/MM3 (0-0.2); BASOPHIL % 1.1 % (0.0-2.0); EOSINOPHIL # 0.1 TH/MM3 (0-0.4); EOSINOPHIL % 1.5 % (0.0-4.0); HEMATOCRIT 39.9 % (39.0-51.0); HEMOGLOBIN 14.4 GM/DL (13.0-17.0); LYMPH % 22.4 % (9.0-44.0); LYMPHOCYTE # 1.4 TH/MM3 (1.0-4.8); MEAN CELL VOLUME 86.2 FL (80.0-100.0); MEAN PLATELET VOLUME 7.8 FL (7.0-11.0); MONOCYTE # 0.4 TH/MM3 (0-0.9); PLATELET COUNT 234 TH/MM3 (150-450); RED BLOOD COUNT 4.63 MIL/MM3 (4.50-5.90); RED CELL DISTRIBUTION WIDTH 13.9 % (11.6-17.2); WHITE BLOOD COUNT 6.4 TH/MM3 (4.0-11.0)
[2017-08-22 15:19] LABS: INTERNATIONAL NORMALIZED RATIO 1.1 RATIO; PROTHROMBIN TIME - PATIENT 10.9 SEC (9.8-11.6)
--- NOTE | 2017-08-22 15:20 | RADRPT ---
EXAM DATE/TIME: 08/22/2017 14:42 [facility] COMPARISON: CT ABDOMEN & PELVIS W/O CONTRAST, November 27, 2016, 19:07. INDICATIONS : Left leg pain and swelling. MEDICAL HISTORY : Hypertension. Diverticulitis. Gastroesophageal reflux disease. SURGICAL HISTORY : Total knee replacement, right. Left upper arm fracture repair. Perforated bowel repair. ENCOUNTER: Subsequent ACUITY: 1 month PAIN SCORE: 3/10 LOCATION: Right leg. TECHNIQUE: Venous ultrasound of the leg was performed from the inguinal ligament to the proximal calf. Real-tex e, color Doppler and spectral tracing, compression and augmentation techniques were used. FINDINGS: There is normal compressibility of the deep venous system from the inguinal region to the proximal ca lf. No echogenic clot is seen in the lumen of the common femoral, femoral, popliteal, and posterior tibial veins. There is a normal response of the venous system to proximal and distal augmentation an d respiration. There is edema in the subcutaneous soft tissues. There is some large but benign-appearing lymph nodes in the right inguinal area. The largest lymph no de measures approximately 4.4 x 2.1 cm. CONCLUSION: No evidence of DVT. Prominent nonspecific lymph nodes in the right groin area. Jimi Ashby MD on August 22, 2017 at 15:17 Board Certified Radiologist. This report was verified electronically.
[2017-08-22 15:23] LABS: ALKALINE PHOSPHATASE 110 U/L (45-117); TOTAL BILIRUBIN ADULT 0.4 MG/DL (0.2-1.0); TOTAL PROTEIN 6.9 GM/DL (6.4-8.2)
[2017-08-22 15:27] LABS: ALBUMIN 3.5 GM/DL (3.4-5.0); ALT (GPT) 13 U/L (12-78); AST (GOT) 28 U/L (15-37); BICARBONATE 25.5 MEQ/L (21.0-32.0); BLOOD UREA NITROGEN 14 MG/DL (7-18); CALCIUM 8.9 MG/DL (8.5-10.1); CHLORIDE 110 MEQ/L (98-107); CREATININE 0.83 MG/DL (0.60-1.30); GLOMERULAR FILTRATION RATE 95 ML/MIN (>89); GLUCOSE,RANDOM 176 MG/DL (74-106); SODIUM (NA) 140 MEQ/L (136-145)
[2017-08-22] MEDS ORDERED: GADODIAMIDE PF 287 MG/ML 20 ML VIAL (for RAD MRI) IVCONTRAST ONE (15:51)
--- NOTE | 2017-08-22 16:16 | RADRPT ---
EXAM DATE/TIME: 08/22/2017 15:37 [facility] COMPARISON: No previous studies available for comparison. INDICATIONS : Cellulitis right medial lower leg. CONTRAST: 18 cc Omniscan (gadodiamide) IV MEDICAL HISTORY : Hypertension. SURGICAL HISTORY : Total knee replacement, right. Total knee replacement, left. ENCOUNTER: Initial ACUITY: 1 day PAIN SCORE: 2/10 LOCATION: Right lower leg TECHNIQUE: Multiplanar multisequence MRI examination of the lower leg was performed with and without contrast. FINDINGS: BONE/CARTILAGE: Bone marrow signal is homogeneous. No bone marrow edema is demonstrated. MUSCLES/TENDONS: All of the visualized muscles and tendons are intact. There is diffuse nonspecific edema in the subcu taneous soft tissues involving the lower leg. No loculated fluid collections are seen to suggest an a bscess. POST-CONTRAST: There are no abnormal areas of enhancement on the post-contrast images. CONCLUSION: 1. Diffuse nonspecific edema is seen throughout the subcutaneous soft tissues. Cellulitis would be th e primary consideration. 2. Normal bone marrow signal is demonstrated in the tibia and fibula. No evidence of osteomyelitis. Jimi Ashyb MD on August 22, 2017 at 16:11 Board Certified Radiologist. This report was verified electronically.
[2017-08-22] MEDS ORDERED: CLIN150C14 PO (16:53)
[2017-08-22] MEDS ORDERED: TRAM50 PO (16:55)
[2017-08-22] MEDS ORDERED: traMADol HCL 50 MG TAB PO ONE (17:00)
[2017-08-22] MEDS ORDERED: CLINDAMYCIN 900 MG/NS PREMIX 50 ML IV ONE (17:00)
== END 2017-08-22 17:23 | disposition home or self-care (01) ==
LOC: NEPC 13:41
DX: L03.115 Cellulitis of right lower limb (principal); I10 Essential (primary) hypertension; K21.9 Gastro-esophageal reflux disease without esophagitis; F17.210 Nicotine dependence, cigarettes, uncomplicated
CPT/HCPCS: 73720; 80053; 85025; 85610; 85652; 85730; 86140; 93971; 96374; 99284; A9579

== ENCOUNTER 2017-09-28 10:53 | Emergency (ER) | payer SELFPAY ==
[~2017-09-28] VITALS: Ht 172.7 cm; Wt 90.9 kg
[~2017-09-28 10:53] MED LIST changes: +CLIN150C14 PO; +TRAM50 PO
[2017-09-28 11:37] VITALS: BP 167/106; PULSE 78; RESP 18; TEMP 98.1; O2SAT 97
[2017-09-28] MEDS ORDERED: AUGM875T3 PO (12:04)
[2017-09-28] MEDS ORDERED: IBUP1TAB7 PO (12:04)
[2017-09-28] MEDS ORDERED: MUPI2OIN TOPICAL (12:05)
--- NOTE | 2017-09-28 12:05 | PD ---
HPI Chief Complaint: Bite or Sting Time Seen by Provider: 11:49 Travel History International Travel<30 days: No Contact w/Intl Traveler<30days: No Traveled to known affect area: No History of Present Illness HPI 61-year-old male presents to the emergency department with complaint of a dog bite wounds that occurred this morning to his left lower leg. Reports seeing the dog multiple times weekly in his neighborhood when he takes his morning walks. He does not know the vaccination status of the dog. Patient was seen here at the end of March for another dog bite wound and had the rabies vaccination series. Reports being up-to-date on tetanus vaccination. Has cleaned the dog bite wound and applied a dressing. Has not taken any medication for his pain or symptoms. Rates pain 7/10. Describes it as a pressure and throbbing sensation. No known relieving factors. Aggravated with palpation and cleaning the wound. Has a primary care provider he can follow-up with. Allergies to aspirin. History of GERD and hypertension. Has no other medical complaints. No other modifying factors or associated signs and symptoms. PFSH Past Medical History Cardiovascular Problems: Yes (HTN) Diminished Hearing: No Diverticulitis: Yes GERD: Yes Hypertension: Yes Immunizations Current: Yes Tetanus Vaccination: < 5 Years Past Surgical History Joint Replacement: Yes (bilat KNEE) Other Surgery: Yes (PERFORATED BOWEL) Social History Alcohol Use: No Tobacco Use: Yes (6 CIGS DAILY) Substance Use: No Allergies-Medications (Allergen,Severity, Reaction): Coded Allergies: aspirin (Unverified Allergy, Severe, ANAPHYLAXIS, 09/28/17) Reported Meds & Prescriptions Reported Meds & Active Scripts Active Mupirocin Topical (Mupirocin) 2 % Oint 1 Applic TOPICAL BID PRN Augmentin (Amoxicillin-Clavulanate) 875-125 Mg Tab 1 Tab PO BID 10 Days Reported Protonix (Pantoprazole Sodium) 40 Mg Tab 40 Mg PO DAILY Lisinopril 10 Mg Tab 10 Mg PO DAILY Review of Systems Except as stated in HPI: all other systems reviewed are Neg Physical Exam Narrative GENERAL: Well-nourished, well-developed male patient, in no acute distress SKIN: Warm and dry. Left lower lateral leg with nonpenetrating dog bite wound has abrasions to the skin; no surrounding erythema, drainage; area with minimal edema. No lymphangitis. Left lower extremity is supple and nontender with 2+ pedal pulse and sensory intact without erythema or edema. HEAD: Atraumatic. Normocephalic. EYES: Pupils equal and round. No scleral icterus. No injection or drainage. ENT: Mucosa pink and moist. Airway patent. NECK: Trachea midline. CARDIOVASCULAR: Regular rate. RESPIRATORY: No accessory muscle use. GASTROINTESTINAL: Rounded. MUSCULOSKELETAL: No obvious deformities. No clubbing. No cyanosis. No edema. NEUROLOGICAL: Awake and alert. Oriented 3. No obvious cranial nerve deficits. Motor grossly within normal limits. Normal speech. PSYCHIATRIC: Appropriate mood and affect; insight and judgment normal. Data Data Last Documented VS Vital Signs Date Time Temp Pulse Resp B/P (MAP) Pulse Ox O2 Delivery O2 Flow Rate FiO2 09/28/17 11:37 98.1 78 18 167/106 (126) 97 Orders Orders Acetaminophen (Tylenol) (09/28/17 12:15) Wound Care (09/28/17 12:06) Ed Discharge Order (09/28/17 12:06) Amoxicil-Clavulanate (Augmentin) (09/28/17 12:15) [facility] Medical Decision Making Medical Screen Exam Complete: Yes Emergency Medical Condition: Yes Medical Record Reviewed: Yes Differential Diagnosis Dog bite wound, wound care, infected wound, medical clearance Narrative Course 61-year-old male with dog bite wound to the left lower leg. Up-to-date on tetanus. Had rabies series vaccination end of March, beginning of April 2017 from dog bite wound. Patient declines rabies vaccinations at this time. Augmentin, Tylenol, and wound care provided in the ER. Augmentin, mupirocin topical ointment prescribed for home. Instructed patient to follow up with primary care provider. Patient verbalizes understanding and agreement with treatment plan. Patient is medically cleared and stable for discharge. Discussed reasons to return to the emergency department. Patient agrees with treatment plan. The patients vital signs are stable and the patient is stable for outpatient follow-up and treatment. Patient discharged home, stable and in no acute distress. Diagnosis Primary Impression: Dog bite of left lower leg Qualified Codes: S81.852A - Open bite, left lower leg, initial encounter; W54.0XXA - Bitten by dog, initial encounter Referrals: Primary Care Physician Patient Instructions: Acute Wound Care (DC), Animal Bite (ED), General Instructions Additional Instructions: Take antibiotics as prescribed and complete full course Tylenol as directed and as needed for pain and inflammation Ice to affected area to help decrease pain and inflammation Follow-up with primary care provider Return to the emergency department immediately with worsening of symptoms Med/Other Pt SpecificInfo: Prescription(s) given Scripts Mupirocin Topical (Mupirocin Topical) 2 % Oint 1 APPLIC TOPICAL BID Y for WOUND CARE, #1 TUBE 0 Refills Prov: Yarely Jackson 09/28/17 Amoxicillin-Clavulanate (Augmentin) 875-125 Mg Tab 1 TAB PO BID for Infection for 10 Days, #20 TAB 0 Refills Prov: Yarely Jackson 09/28/17 Disposition: 01 DISCHARGE HOME Condition: Stable Yarely Jackson Sep 28, 2017 12:05
[2017-09-28] MEDS ORDERED: ACETAMINOPHEN 325 MG TAB PO ONE (12:15)
[2017-09-28] MEDS ORDERED: AMOXICILLIN/CLAVULANATE K 875 MG TAB PO ONE (12:15)
== END 2017-09-28 12:20 | disposition home or self-care (01) ==
LOC: NEPK 10:53
DX: S81.852A Open bite, left lower leg, initial encounter (principal); W54.0XXA Bitten by dog, initial encounter; I10 Essential (primary) hypertension; K21.9 Gastro-esophageal reflux disease without esophagitis; F17.210 Nicotine dependence, cigarettes, uncomplicated; Z79.899 Other long term (current) drug therapy
CPT/HCPCS: 99283